=== PATIENT | male | born 1980 | race African-American/Black ===

== ENCOUNTER 2018-06-04 00:39 | Emergency (ER) | payer SELFPAY ==
--- NOTE | 2018-06-04 08:46 | RAD ---
CHEST 1 VIEW: HISTORY: Dyspnea. FINDINGS: No comparison. Cardiac silhouette is magnified by projection. Pulmonary vasculature is unremarkable . Rightward curvature of the thoracic spine and mediastinum. No confluent airspace consolidation or evidence of pneumothorax. IMPRESSION: No active cardiopulmonary abnormalities are demonstrated. POS: [facility]
== END 2018-06-04 02:04 | disposition home or self-care (01) ==
LOC: ERS 00:39
DX: J45.901 Unspecified asthma with (acute) exacerbation (principal)
CPT/HCPCS: 71045; 94640; J7620

== ENCOUNTER 2018-09-30 06:00 | Emergency (ER) | payer SELFPAY ==
[2018-09-30] MEDS ORDERED: predniSONE 20 MG TAB ONE (06:25)
== END 2018-09-30 07:00 | disposition home or self-care (01) ==
LOC: ERS 06:00
DX: J45.909 Unspecified asthma, uncomplicated (principal); Z87.891 Personal history of nicotine dependence; Z79.51 Long term (current) use of inhaled steroids
CPT/HCPCS: 94640; J7620